=== PATIENT | female | born 1980 | race Two or more races ===

== ENCOUNTER 2019-04-13 06:11 | Day surgery (SDC) | payer BC, SELFPAY ==
[2019-04-12 09:07] VITALS: BMI 51.3
[2019-04-13 06:34] VITALS: BP 146/115; PULSE 83; RESP 18; TEMP 36.6; O2SAT 99
[2019-04-13] MEDS: sodium chloride 0.9% 1,000 ML 30 ML (06:42)
--- NOTE | 2019-04-13 06:45 | ANES.PREANES ---
Pre-Anesthetic Assessment Pre-Anesthetic Assessment: Height/Weight: Height 1.6 m Weight 131.542 kg Temp Pulse Resp BP Pulse Ox 98 F 83 18 146/115 99 04/13/19 06:34 04/13/19 06:34 04/13/19 06:34 04/13/19 06:34 04/13/19 06:34 Proposed Procedure: Operation Date: 04/13/19 07:00 Proposed Procedures p EGD(Not Applicable) - Brian Sullivan MD Last intake: Intake Last Liquid Date 04/12/19 Last Liquid Time 22:00 Last Solid Date 04/12/19 Last Solid Time 22:00 Social: Social History: No alcohol and No tobacco Exam: Pre-Anes Outpt Exam: alert, oriented x 3, clear to auscultation bilaterally and regular rate & rhythm Airway: Submandibular: WNL Cervical ROM: WNL MP: 1 Dentition: Full History/ROS: No significant complaints Pulmonary: Pulmonary: None reported CV/HEM: CV/HEM: None reported : : None reported Hepatic: Hepatic: None reported GI: GI: GERD (occasional ) Metabolic: Metabolic: Morbid obesity Musc/skel: Musc/skel: None reported Neuropsych: Neuropsych: None reported Anesthetic Plan: ASA status: II Anesthesia: MAC Risk of > 500 ml blood loss (7ml/kg in children): No PFSH Anesthesia PFSH: Social History (Updated 04/12/19 @ 09:02 by Renate Woo RN) Smoking and tobacco status: former smoker Data Anesthesia Cardiac Studies: No Data to Display
--- NOTE | 2019-04-13 06:55 | PM.HPUD ---
H&P update H&P Update: DATE OF SURGERY/PROCEDURE: 04/13/19 DATE H&P PERFORMED: 03/01/19 PLANNED PROCEDURE: Operation Date: 04/13/19 07:00 Proposed Procedures p EGD(Not Applicable) - Brian Sullivan MD Full H&P HPI: PLANNED PROCEDURE: Diagnostic EGD HPI: Chief complaint; GERD associated with obesity HPI; This is a pleasant 58 years old morbidly obese patient with multiple medical comorbidities including GERD, patient is interested in bariatric surgery, undergone an upper GI study that showed small reducible hernia otherwise the study is unremarkable. I did clinical mental health counselor the patient for diagnostic EGD to assess better the hernia. Patient agreed to proceed Perinent History: Social History: Social History Smoking and tobacco status: former smoker Pertinent Exam Findings: PHYSICAL EXAM: alert, oriented x 3, clear to auscultation bilaterally, regular rate & rhythm and operative site marked (Abdomen nontender nondistended soft no guarding or rigidity/morbidly obese) A&P Assessment and plan (1) Hiatal hernia with GERD without esophagitis: Plan of care; After thorough history and physical examination and reviewing the chart, plan to perform a diagnostic esophagogastroduodenoscopy and possible biopsy in the GI lab. Informed consent per chart were,Indications, risks, benefits, and alternatives were all discussed with the patient and did agree to proceed. Status: Acute Code(s): K44.9 - Diaphragmatic hernia without obstruction or gangrene; K21.9 - Gastro-esophageal reflux disease without esophagitis
[2019-04-13 07:00] LABS: OR HCG Qualitative Urine Negative (Negative)
[2019-04-13 07:17] VITALS: BP 102/79; PULSE 86; RESP 18; TEMP 36.1; O2SAT 98
--- NOTE | 2019-04-13 07:18 | ANE.PACU ---
 Inpatient post-anesthesia follow up: Airway intact: Yes Vital signs: Temperature 98 F Pulse Rate [Monito r] 83 Respiratory Rate 18 Blood Pressure [Le ft Arm] 146/115 Pulse Oximetry 99 Oxygen Delivery Me thod Room Air Oxygen Flow Rate Fraction of Inspir ed Oxygen Hydration adequate: Yes Nausea and vomiting: No Pain level: 1 Mental status: Baseline
[2019-04-13 08:00] VITALS: BP 143/100; PULSE 73; RESP 18; O2SAT 100
[2019-04-14 06:55] LABS: H. Pylori / CLO Test Negative
== END 2019-04-13 08:10 | disposition home or self-care (01) ==
PROVIDERS: Anesthesiology; Family Provider Internal Medicine; PCP Internal Medicine; Visit Provider Surgery
PROC: 0DJ08ZZ Inspection of Upper Intestinal Tract, Via Natural or Artificial Opening Endoscopic (ICD-10-PCS; CPT 43235; principal; 2019-04-13 07:00)
DX: E66.01 Morbid (severe) obesity due to excess calories (principal); Z68.43 Body mass index [BMI] 50.0-59.9, adult; K21.9 Gastro-esophageal reflux disease without esophagitis; K29.70 Gastritis, unspecified, without bleeding; K44.9 Diaphragmatic hernia without obstruction or gangrene; Z87.891 Personal history of nicotine dependence
CPT/HCPCS: 12345; 43239; 84703; 87077; 96365; J2001; J2704; J7030

== ENCOUNTER 2019-04-15 01:11 | Emergency (ER) | payer BC, SELFPAY ==
--- NOTE | 2019-04-15 01:21 | CTR_ITS ---
PROCEDURE INFORMATION: Exam: CT Abdomen And Pelvis With Contrast Exam date and time: 04/15/2019 1:49 AM Age: 38 years old Clinical indication: Abdominal pain; Acute; Prior surgery; Surgery date: 6+ months; Surgery type: Cholecystectomy; Additional info: Abd pain TECHNIQUE: Imaging protocol: Computed tomography of the abdomen and pelvis with intravenous contrast. Total DLP: 1993.72 mGy-cm Radiation optimization: All CT scans at this facility use at least one of these dose optimization techniques: automated exposure control; mA and/or kV adjustment per patient size (includes targeted exams where dose is matched to clinical indication); or iterative reconstruction. Contrast material: OMNI 300; Contrast volume: 95 ml; Contrast route: 18G; COMPARISON: CT Abdomen/Pelvis Renal [id number] 09/14/2013 6:08 AM FINDINGS: Liver: Still no apparent liver disease. Gallbladder and bile ducts: Cholecystectomy again evident. No interval change in the slight biliary ductal dilatation. Pancreas: No suggestion of interval pancreatic disease. Spleen: Still no splenomegaly. Adrenals: Still no adrenal mass. Kidneys and ureters: Still no hydronephrosis or apparent renal mass. Stomach and bowel: Interval decrease in the streak artifacts through the pelvis. Minimal sigmoid diverticulosis now evident. Still no obstruction. Appendix: Still no appendicitis. Intraperitoneal space: No free air. No significant fluid collection. Vasculature: Unremarkable. No abdominal aortic aneurysm. Lymph nodes: Enlarged mesenteric nodes again evident. No apparent interval enlarged nodes. Bladder: Unremarkable as visualized. Reproductive: Interval appearance of the well-positioned IUD. Continued uterine prominence. Interval increase in size of the left ovary; subtle left ovarian mass now suspected. Bones/joints: Developmental variant of 4 lumbar vertebral bodies again evident. Continued old slight compression fractures. Minimal degeneration of a few discs as before. Soft tissues: No acute finding. CT/CT abdomen pelvis w con* [id number] IMPRESSION: 1. No apparent acute disease. Interval increase in size of the left ovary and suggestion of a subtle mass within it. Interval appearance of the well-positioned IUD. Continued uterine prominence. 2. Enlarged mesenteric nodes again evident. Cholecystectomy again evident. Other findings detailed above. Radiation Dose CTDIVOL = (mGy): DLP = 1993.72 (mGy-cm)
[2019-04-15 01:29] VITALS: BP 157/77; PULSE 103; RESP 18; O2SAT 99; BMI 51.3
--- NOTE | 2019-04-15 01:39 | W.ED.ABDPA2 ---
Documented by User: MIRANDA Taylor 04/15/19 03:05 HPI - Abdominal Pain General: Chief Complaint: Abdominal Pain Stated Complaint: VOMITING, ABD PAIN Time Seen by Provider: 04/15/19 01:28 History of Present Illness: HPI narrative: Patient is a 38-year-old female comes into the ED with abdominal pain. The abdominal pain, nausea, vomiting and diarrhea all started around 7 PM tonight. She states the abdominal pain comes and goes and gets very intense. Pain is in the right upper quadrant region of the abdomen. She has vomited 3 times tonight and has had 4+ episodes of diarrhea tonight as well. Patient states she has had her gallbladder removed. 2 days ago patient had an upper endoscopic procedure performed, since she is going to be getting a gastric bypass surgery. I wanted to do an upper scope to evaluate before setting her up for gastric bypass surgery. Patient was made aware that the scope did show some inflammation in the stomach and they prescribed her esomeprazole. There were no complications during or after scope procedure. Patient said she was fine up until 7 PM tonight. Patient says her boss just recently came down with a GI bug causing similar symptoms. Patient does states she's had a fever and chills tonight. Denies any chest pain or shortness of breath,Hematuria, dysuria, blood in the stool, upper respiratory symptoms such as nasal drainage, cough, ear pain, throat. Review of Systems General: Reports: 10 or more systems reviewed and unremarkable except in HPI and below PFSH ED PFSH: Statuses (acute, chronic, etc) shown below reflect problem list status as previously entered and may not be historically accurate Social History Smoking and tobacco status: never smoked Physical Exam Narrative: EXAM NARRATIVE: Patient is a 38-year-old female that appears to be in acute pain and distress upon examination. She is hyperventilating due to the pain. Const: COMMON NORMALS: oriented x3 HENMT: COMMON NORMALS: normocephalic HEAD & SCALP: normocephalic MOUTH: oral and palatal mucosa normal THROAT: posterior oropharynx normal and uvula midline Neck/C-Spine: COMMON NORMALS: supple GENERAL: Yes normal visual inspection Resp: COMMON NORMALS: normal respiratory effort, no retractions, no use of accessory muscles and clear to auscultation bilaterally AUSCULTATION: clear to auscultation bilaterally Cardio: COMMON NORMALS: regular rate, regular rhythm, S1 normal heart sound, S2 normal heart sound, no gallops, no clicks, no murmurs and peripheral pulses 2+ throughout RATE: regular rate RHYTHM: regular rhythm HEART SOUNDS: S1 normal and S2 normal PERIPHERAL PULSES: pulses 2+ throughout GI: COMMON NORMALS: normal to inspection, nondistended, normoactive bowel sounds, soft to palpation and no masses INSPECTION: Yes central obesity PALPATION: Yes soft and Yes tender (moderate to severe tenderness upon light palpation) Details: RUQ : COMMON NORMALS: Yes no CVA tenderness BLADDER/KIDNEY EXAM: Yes no CVA tenderness Back/Pelvis: COMMON NORMALS: no CVA tenderness Extremity: COMMON NORMALS: normal to inspection Neuro: COMMON NORMALS: oriented x3 GAIT: Yes normal gait Course Vital Signs: Vital signs: Vital Signs Pulse Rate 103 H 04/15/19 01:29 Respiratory Rate 18 04/15/19 01:29 Blood Pressure 157/77 04/15/19 01:29 Pulse Oximetry 99 04/15/19 01:29 MDM - Abdominal Pain Lab Data: Labs: Lab Results 04/15/19 04/15/19 Range/Units 01:30 04:12 WBC 11.7 H (4.0-10.0) 10^3/ uL RBC 5.47 H (4.1-5.3) 10^6/u L Hgb 15.5 H (11.5-15.3) g/dL Hct 47.6 H (37.0-47.0) % MCV 87.0 (81-99) fL MCH 28.3 (28.0-34.0) pg MCHC 32.6 (30.0-36.0) g/dL RDW 13.6 (12.1-15.1) % Plt Count 256 (130-400) 10^3/c mm MPV 10.1 (7.4-10.4) fL Neut % (Auto) 92.2 % Lymph % (Auto) 4.7 % [place] % (Auto) 2.3 % Eos % (Auto) 0.3 % Baso % (Auto) 0.2 % Neut # (Auto) 10.8 H (1.8-7.7) 10^3/u L Lymph # (Auto) 0.6 L (0.8-4.8) 10^3/u L [place] # (Auto) 0.3 (0.2-0.9) 10^3/u L Eos # (Auto) 0.0 (0.0-0.8) 10^3/u L Baso # (Auto) 0.0 (0.0-0.1) 10^3/u L Nucleated RBC % (a uto) 0 % Nucleated RBCs # 0.0 /100WBC Sodium 134 L (136-145) mmol/L Potassium 4.7 (3.5-5.1) mmol/L Chloride 101 (98-107) mmol/L Carbon Dioxide 19 L (22-29) mmol/L Anion Gap 18.7 (5-19) BUN 18 (6-20) mg/dL Creatinine 0.6 (0.5-0.9) mg/dL GFR Calculation 113.1 (90-130) mL/min Glucose 127 H (74-109) mg/dL Calcium 9.7 (8.6-10.0) mg/Dl Total Bilirubin 0.5 (0.15-1.2) mg/dL AST 26 (0-32) U/L ALT 14 (0-33) U/L Alkaline Phosphata se 64 (35-105) IU/L Total Protein 8.0 (6.6-8.7) g/dL Albumin 4.2 (3.5-5.2) g/dL Globulin 3.8 (1.3-4.6) g/dL Lipase 19 (13-60) U/L Discharge Plan Discharge Patient Disposition: Home, Self-Care Clinical Impression: Abdominal pain Qualifiers: Abdominal location: generalized Qualified Code(s): R10.84 - Generalized abdominal pain Condition: Stable Prescriptions: New Reglan 10 mg tablet 10 mg PO Q6H PRN (Reason: nausea and vomiting) Qty: 20 RF: 0 No Action magnesium 250 mg Tablet 500 mg PO DAILY RF: 0 biotin 1 mg Capsule 1 mg PO DAILY RF: 0 esomeprazole magnesium 40 mg capsule,delayed release(DR/EC) 40 mg PO DAILY 42 Days Qty: 42 RF: 2 Discharge Orders: Discharge Order (Routine); Ordered 04/15/19 Ordered By: Shukri Jenkins Referrals: Savannah Ly MD [Primary Care Provider] - Discharge Diet: Advance as tolerated Discharge Activity: Resume usual activity Patient Instructions: Abdominal Pain (ED) Coding Level of Care Code ED [facility] for Bee Medrano Documented by User: Shukri Jenkins MD 04/15/19 05:11 HPI - Abdominal Pain General: Chief Complaint: Abdominal Pain Stated Complaint: VOMITING, ABD PAIN Time Seen by Provider: 04/15/19 01:28 History of Present Illness: Associated Symptoms: Denies chills, diarrhea, fever(s), nausea and vomiting Review of Systems Const: Denies: fever or chills Eyes: Denies: change in vision ENMT: Denies: throat pain or mouth pain Card: Denies: chest pain Resp: Denies: shortness of breath GI: Reports: abdominal pain; Denies: nausea, vomiting or diarrhea : Denies: difficulty urinating Musc: Denies: back pain or joint pain Skin/Breast: Denies: rash Neuro: Denies: headache or behavioral changes Psych: Denies: depression Endo: Denies: excessive urination Srinivas/Lymph: Denies: easy bruising All/Imm: Denies: hives PFSH ED PFSH: Statuses (acute, chronic, etc) shown below reflect problem list status as previously entered and may not be historically accurate Social History Smoking and tobacco status: never smoked Course Vital Signs: Vital signs: Vital Signs Pulse Rate 103 H 04/15/19 01:29 Respiratory Rate 18 04/15/19 01:29 Blood Pressure 157/77 04/15/19 01:29 Pulse Oximetry 99 04/15/19 01:29 MDM - Abdominal Pain MDM Narrative: Medical decision making narrative: Patient presents here with abdominal pain along with vomiting. Patient CT scan and lab work are normal. She feels much improved here. Patient is stable for discharge and is to follow-up with primary care doctor in 3 to 5 days and return if worsening. Lab Data: Labs: Lab Results 04/15/19 04/15/19 Range/Units 01:30 04:12 WBC 11.7 H (4.0-10.0) 10^3/ uL RBC 5.47 H (4.1-5.3) 10^6/u L Hgb 15.5 H (11.5-15.3) g/dL Hct 47.6 H (37.0-47.0) % MCV 87.0 (81-99) fL MCH 28.3 (28.0-34.0) pg MCHC 32.6 (30.0-36.0) g/dL RDW 13.6 (12.1-15.1) % Plt Count 256 (130-400) 10^3/c mm MPV 10.1 (7.4-10.4) fL Neut % (Auto) 92.2 % Lymph % (Auto) 4.7 % [place] % (Auto) 2.3 % Eos % (Auto) 0.3 % Baso % (Auto) 0.2 % Neut # (Auto) 10.8 H (1.8-7.7) 10^3/u L Lymph # (Auto) 0.6 L (0.8-4.8) 10^3/u L [place] # (Auto) 0.3 (0.2-0.9) 10^3/u L Eos # (Auto) 0.0 (0.0-0.8) 10^3/u L Baso # (Auto) 0.0 (0.0-0.1) 10^3/u L Nucleated RBC % (a uto) 0 % Nucleated RBCs # 0.0 /100WBC Sodium 134 L (136-145) mmol/L Potassium 4.7 (3.5-5.1) mmol/L Chloride 101 (98-107) mmol/L Carbon Dioxide 19 L (22-29) mmol/L Anion Gap 18.7 (5-19) BUN 18 (6-20) mg/dL Creatinine 0.6 (0.5-0.9) mg/dL GFR Calculation 113.1 (90-130) mL/min Glucose 127 H (74-109) mg/dL Calcium 9.7 (8.6-10.0) mg/Dl Total Bilirubin 0.5 (0.15-1.2) mg/dL AST 26 (0-32) U/L ALT 14 (0-33) U/L Alkaline Phosphata se 64 (35-105) IU/L Total Protein 8.0 (6.6-8.7) g/dL Albumin 4.2 (3.5-5.2) g/dL Globulin 3.8 (1.3-4.6) g/dL Lipase 19 (13-60) U/L Imaging Data ^: CT Abd/Pel: Radiologist's impression: Ordering Provider/Ordering MD: Shukri Jenkins MD Date of Service: 04/15/19 Procedure(s): CT abdomen pelvis w con* [id number] Accession Number(s): [id number] Report Number: [id number] PROCEDURE INFORMATION: Exam: CT Abdomen And Pelvis With Contrast Exam date and time: 04/15/2019 1:49 AM Age: 38 years old Clinical indication: Abdominal pain; Acute; Prior surgery; Surgery date: 6+ months; Surgery type: Cholecystectomy; Additional info: Abd pain TECHNIQUE: Imaging protocol: Computed tomography of the abdomen and pelvis with intravenous contrast. Total DLP: 1994.72 mGy-cm Radiation optimization: All CT scans at this facility use at least one of these dose optimization techniques: automated exposure control; mA and/or kV adjustment per patient size (includes targeted exams where dose is matched to clinical indication); or iterative reconstruction. Contrast material: OMNI 300; Contrast volume: 95 ml; Contrast route: 18G; COMPARISON: CT Abdomen/Pelvis Renal [id number] 09/14/2013 6:08 AM FINDINGS: Liver: Still no apparent liver disease. Gallbladder and bile ducts: Cholecystectomy again evident. No interval change in the slight biliary ductal dilatation. Pancreas: No suggestion of interval pancreatic disease. Spleen: Still no splenomegaly. Adrenals: Still no adrenal mass. Kidneys and ureters: Still no hydronephrosis or apparent renal mass. Stomach and bowel: Interval decrease in the streak artifacts through the pelvis. Minimal sigmoid diverticulosis now evident. Still no obstruction. Appendix: Still no appendicitis. Intraperitoneal space: No free air. No significant fluid collection. Vasculature: Unremarkable. No abdominal aortic aneurysm. Lymph nodes: Enlarged mesenteric nodes again evident. No apparent interval enlarged nodes. Bladder: Unremarkable as visualized. Reproductive: Interval appearance of the well-positioned IUD. Continued uterine prominence. Interval increase in size of the left ovary; subtle left ovarian mass now suspected. Bones/joints: Developmental variant of 4 lumbar vertebral bodies again evident. Continued old slight compression fractures. Minimal degeneration of a few discs as before. Soft tissues: No acute finding. CT/CT abdomen pelvis w con* [id number] IMPRESSION: 1. No apparent acute disease. Interval increase in size of the left ovary and suggestion of a subtle mass within it. Interval appearance of the well-positioned IUD. Continued uterine prominence. 2. Enlarged mesenteric nodes again evident. Cholecystectomy again evident. Other findings detailed above. Discharge Plan Discharge Patient Disposition: Home, Self-Care Clinical Impression: Abdominal pain Qualifiers: Abdominal location: generalized Qualified Code(s): R10.84 - Generalized abdominal pain Condition: Stable Prescriptions: New Reglan 10 mg tablet 10 mg PO Q6H PRN (Reason: nausea and vomiting) Qty: 20 RF: 0 No Action magnesium 250 mg Tablet 500 mg PO DAILY RF: 0 biotin 1 mg Capsule 1 mg PO DAILY RF: 0 esomeprazole magnesium 40 mg capsule,delayed release(DR/EC) 40 mg PO DAILY 42 Days Qty: 42 RF: 2 Discharge Orders: Discharge Order (Routine); Ordered 04/15/19 Ordered By: Shukri Jenkins Referrals: Savannah Ly MD [Primary Care Provider] - Discharge Diet: Advance as tolerated Discharge Activity: Resume usual activity Patient Instructions: Abdominal Pain (ED) Coding Level of Care Code ED [facility] for Bee Medrano
[2019-04-15 02:32] LABS: Albumin Level 4.2 g/dL (3.5-5.2); Blood Urea Nitrogen 18 mg/dL (6-20); Calcium 9.7 mg/Dl (8.6-10.0); Carbon Dioxide 19 mmol/L (22-29); Chloride 101 mmol/L (98-107); Globulin 3.8 g/dL (1.3-4.6); Glomerular Filtration Rate 113.1 mL/min (90-130); Glucose 127 mg/dL (74-109); Sodium 134 mmol/L (136-145); Total Bilirubin 0.5 mg/dL (0.15-1.2)
[2019-04-15 02:33] LABS: Alanine Aminotransferase 14 U/L (0-33); Anion Gap 18.7 (5-19); Aspartate Amino Transferase 26 U/L (0-32); Potassium 4.7 mmol/L (3.5-5.1)
[2019-04-15] MEDS: ondansetron 2 mg/ML SDV 2 mL 4 MG IVP (02:35)
[2019-04-15] MEDS: morphine 4 mg/mL SDV 1 mL IVP (02:35)
[2019-04-15] MEDS: iohexol 300 mg/mL 100 mL Btl IV (03:16)
[2019-04-15 03:39] LABS: Alkaline Phosphatase 64 IU/L (35-105); Lipase 19 U/L (13-60)
[2019-04-15] MEDS: diphenhydrAMINE 50 mg/mL SDV 1mL IVP (04:16)
[2019-04-15] MEDS: metoclopramide 5 mg/mL SDV 2 mL 10 MG IVP (04:17)
[2019-04-15 04:18] LABS: Basophils % 0.2 %; Eosinophils % 0.3 %; Hematocrit 47.6 % (37.0-47.0); Hemoglobin 15.5 g/dL (11.5-15.3); Lymphocytes # 0.6 10^3/uL (0.8-4.8); Lymphocytes % 4.7 %; Mean Corpuscular HGB Conc 32.6 g/dL (30.0-36.0); Mean Corpuscular Hemoglobin 28.3 pg (28.0-34.0); Mean Platelet Volume 10.1 fL (7.4-10.4); Monocytes # 0.3 10^3/uL (0.2-0.9); Monocytes % 2.3 %; Neutrophils # 10.8 10^3/uL (1.8-7.7); Neutrophils % 92.2 %; Nucleated Red Blood Cells % 0 %; Platelet Count 256 10^3/cmm (130-400); Red Blood Count 5.47 10^6/uL (4.1-5.3); Red Cell Distribution Width 13.6 % (12.1-15.1); White Blood Count 11.7 10^3/uL (4.0-10.0)
[2019-04-15 05:15] VITALS: BP 107/80; PULSE 103; RESP 18; TEMP 37.1; O2SAT 98
== END 2019-04-15 05:18 | disposition home or self-care (01) ==
PROVIDERS: Physician Assistant; Emergency Provider Emergency Medicine; Family Provider Internal Medicine; PCP Internal Medicine
DX: R10.84 Generalized abdominal pain (principal)
CPT/HCPCS: 74177; 80053; 83690; 85025; 96372; 96374; 99281; J1200; J2270; J2405; J2765; Q9967

== ENCOUNTER → 2019-06-07 16:02 | Outpatient (BNVA) | payer BC, SELFPAY | PROVIDERS: Family Provider Internal Medicine; PCP Internal Medicine; Visit Provider Obstetrics & Gynecology | DX: R93.89 Abnormal findings on diagnostic imaging of other specified body structures (principal); N83.8 Other noninflammatory disorders of ovary, fallopian tube and broad ligament | CPT/HCPCS: 76830 ==

== ENCOUNTER → 2019-07-04 11:44 | Outpatient (BNVA) | payer BC, SELFPAY | PROVIDERS: Family Provider Internal Medicine; PCP Internal Medicine; Visit Provider Obstetrics & Gynecology | DX: D06.1 Carcinoma in situ of exocervix (principal); D06.0 Carcinoma in situ of endocervix | CPT/HCPCS: 88175 ==

== ENCOUNTER → 2019-07-05 09:13 | Outpatient (BNVA) | payer BC, SELFPAY | PROVIDERS: Family Provider Internal Medicine; PCP Internal Medicine; Visit Provider Obstetrics & Gynecology | DX: D06.1 Carcinoma in situ of exocervix (principal) | CPT/HCPCS: 88305 ==

== ENCOUNTER → 2019-12-21 15:47 | Outpatient (BNVA) | payer BC, SELFPAY | PROVIDERS: Family Provider Internal Medicine; PCP Internal Medicine; Visit Provider Obstetrics & Gynecology | DX: D06.1 Carcinoma in situ of exocervix (principal) | CPT/HCPCS: 88175 ==

== ENCOUNTER 2020-09-18 15:43 | Outpatient (CLI) | payer BC, SELFPAY ==
--- NOTE | 2020-09-18 | XR_ITS ---
WS: [id number] Left knee, 4 views, 09/18/2020 Clinical Data: LT KNEE JOINT PAIN Comparison: Left knee, 08/27/2012. Findings: No fractures or dislocations are seen. The joint spaces are normal. The patella is intact. The soft t issues are unremarkable. XR/XR knee LT 4V [id number] Impression: Negative left knee. Kellgren-Zain Classification: grade 0 (none): definite absence of x-ray bhavin nges of osteoarthritis
== END 2020-09-18 15:44 | disposition home or self-care (01) ==
PROVIDERS: PCP Internal Medicine; Visit Provider Internal Medicine
DX: M25.562 Pain in left knee (principal)
CPT/HCPCS: 73564

== ENCOUNTER → 2020-12-31 08:31 | Outpatient (BNVA) | payer BC, SELFPAY | PROVIDERS: PCP Internal Medicine; Visit Provider Obstetrics & Gynecology | DX: D06.1 Carcinoma in situ of exocervix (principal) | CPT/HCPCS: 87624 ==

== ENCOUNTER 2022-06-17 09:29 | Outpatient (CLI) | payer OTHER, SELFPAY ==
--- NOTE | 2022-06-17 09:44 | US_ITS ---
WS: [id number] Left breast ultrasound, 06/17/2022 Clinical Data: N63.20 - Unspecified lump in the left breast, unspecified... Comparison: None. Findings: Imaging of the left breast 4 cm from the nipple in the upper outer quadrant revealed only normal lauro st tissue. There were no cysts or masses. US/US breast LT limited* [id number] Impression: 1. Negative left breast ultrasound. 2. Return to clinical follow-up. BIRADS: 1-Negative FOLLOW UP: See Report
--- NOTE | 2022-06-17 09:44 | MM_ITS ---
WS: [id number] Bilateral diagnostic 3D tomosynthesis digital mammogram, 06/17/2022 Clinical Data: C50.919 - Malignant neoplasm of unspecified site of unspe... Comparison: 01/20/2017. Findings: The breast parenchymal pattern shows fibroglandular tissue. The right breast is normal. The left lauro st shows no spiculated masses or clustered calcifications. The site of the minimally palpable abnorma lity at the 12:00 position in the left breast demonstrates no abnormalities. There are no secondary s igns of carcinoma. MM/[place] [id number] Impression: 1. Negative bilateral mammograms with no abnormality in the superior aspect of the left breast. 2. Left breast ultrasound. BIRADS: 2-Benign FOLLOW UP: See Report The CAD tool design checker was used.
== END 2022-06-17 09:30 | disposition home or self-care (01) ==
LOC: RAD 09:31
PROVIDERS: PCP Internal Medicine; Visit Provider Obstetrics & Gynecology
DX: N63.21 Unspecified lump in the left breast, upper outer quadrant (principal)
CPT/HCPCS: 76642; 77062; G0279

== ENCOUNTER → 2023-03-25 11:07 | Outpatient (BNVA) | payer OTHER, SELFPAY | PROVIDERS: Visit Provider Family Medicine Adult Medicine | DX: J30.9 Allergic rhinitis, unspecified (principal); H10.13 Acute atopic conjunctivitis, bilateral | CPT/HCPCS: 82785; 86003 ==

== ENCOUNTER → 2024-02-17 15:51 | Outpatient (BNVA) | payer OTHER, SELFPAY | PROVIDERS: Visit Provider Nurse Practitioner Women's Health | DX: Z01.419 Encounter for gynecological examination (general) (routine) without abnormal findings (principal) | CPT/HCPCS: 87624 ==

== ENCOUNTER → 2024-03-28 15:09 | Outpatient (BNVA) | payer OTHER, SELFPAY | PROVIDERS: Visit Provider Podiatrist Foot & Ankle Surgery | DX: M79.671 Pain in right foot (principal); M79.672 Pain in left foot; M21.611 Bunion of right foot; M21.612 Bunion of left foot; M20.41 Other hammer toe(s) (acquired), right foot; M20.42 Other hammer toe(s) (acquired), left foot; M76.821 Posterior tibial tendinitis, right leg; M76.822 Posterior tibial tendinitis, left leg | CPT/HCPCS: 73630 ==

== ENCOUNTER 2024-05-16 14:53 | Outpatient (CLI) | payer OTHER, SELFPAY ==
--- NOTE | 2024-05-16 14:58 | MM_ITS ---
WS: [id number] VIEWS: MLO and CC views both breasts. 3D digital tomosynthesis is also included in this exam. Comparison made with prior exam of 01/20/2017, 06/17/2022.. Findings: There are scattered areas of fibroglandular density. No sign of suspicious mass, tumor calcification or architectural distortion. MM/MM scr BI tomosynthesis [id number] Impression: BI-RADS: 2 - Benign. FOLLOW-UP: 1 Year Follow-up This mammogram was also analyzed by the Computer Aided Detection System R2 Imag e Developer [employer].
== END 2024-05-16 14:54 | disposition home or self-care (01) ==
LOC: RAD 14:54
PROVIDERS: Visit Provider Nurse Practitioner Women's Health
DX: Z12.31 Encounter for screening mammogram for malignant neoplasm of breast (principal); R92.323 Mammographic fibroglandular density, bilateral breasts
CPT/HCPCS: 77063; 77067